=== PATIENT | female | born 1960 | race Caucasian/White ===

== ENCOUNTER 2022-04-13 19:58 | Observation (INO) ==
[2022-04-13] MEDS ORDERED: IOPAMIDOL 100 ML BOTTLE IV ONE (19:59)
[2022-04-13] MEDS ORDERED: 0.9 % SODIUM CHLORIDE 1,000 ML IV ONE (20:29)
[2022-04-13 20:38] LABS: POC Calcium, Ionized 1.19 (1.16-1.32); POC Creatinine 0.8 (0.6-1.2); POC Potassium 3.4 (3.3-5.1)
--- NOTE | 2022-04-13 20:57 | Emergency Department Note ---
Abdominal Pain HPI General Chief Complaint: Abdominal Pain Stated Complaint: right lower abd. pain Time Seen by Provider: 04/13/22 20:29 Source: patient Mode of arrival: ambulatory Limitations: no limitations History of Present Illness HPI Narrative: Narrative: Patient presents ED with complaints of abdominal pain x2 days has been worsening. Pain is rated 3/10 right now but whenever she tries to walk it goes up to 7/10. She reports the pains on her right side in the middle of her belly and radiates down to her right lower quadrant. Patient reports that she has had a UTI that she has been treated for twice in the past month. She finished up her last round of antibiotics about 3 days ago. She still reports a funny feeling when she pees. She denies fever, chills, nausea, vomiting, diarrhea, constipation, urinary frequency, foul-smelling urine, vaginal discharge, hematuria, abdominal trauma. She reports vesg-[id number] medication does not help with the discomfort. Patient denies any other alleviating or aggravating factors. Related Data Home Medications Medication Instructions Recorded Confirmed montelukast 10 mg tablet 10 mg PO QDAY 02/11/22 04/01/22 Allergies Allergy/AdvReac Type Severity Reaction Status Date / Time Sulfa (Sulfonamide Allergy Intermediate Swelling Verified 04/13/22 20:04 Antibiotics) Review of Systems ROS ROS Narrative: Narrative: All systems ED: reviewed and negative except as stated. PFS Narrative Patient History Narrative: Narrative: Medical/Surgical/Family History All Active Problems (Updated 04/13/22 @ 22:32 by Ben Fitzgerald DO) Acute appendicitis (Acute) UTI (urinary tract infection) (Acute) Social History Smoking Status: Never smoker Exam Narrative Narrative: Narrative: General Limitations: no limitations General appearance: Present alert Respiratory Respiratory: Present normal lung sounds bilaterally; Absent respiratory distress Cardiovascular Cardiovascular: Present regular rate and normal rhythm Adbominal Abdominal: Present soft, tenderness, guarding and normal bowel sounds Expanded Abdominal Abdominal Tenderness: Present RUQ and RLQ Back Back: Absent CVA tenderness (R) or CVA tenderness (L) Neurological Neurological: Present oriented X3 and normal gait Psychiatric Psychiatric: Present normal affect and normal mood Skin Skin: Present intact Course Course Course Narrative: Patient was evaluated for abdominal pain. Labs were obtained show leukocytosis. CT abdomen pelvis obtained with image reviewed myself which shows acute teto endicitis. Case was discussed with on-call surgeon, Dr. Sadler, who recommend the patient be admitted to the hospital and IV antibiotics administered. He requested patient be made n.p.o. and preparations for surgery in the morning. Plan was discussed with patient she expressed verbal understanding and agreement. Consultations Consultation #1: Case discussed with on-call surgeon, Dr. Sadler, recommends the patient be admit justo to the hospital and given oral antibiotics and made n.p.o. Time: 22:20 Vital Signs Vital signs: Vital Signs Pulse Rate 66 04/13/22 20:12 Blood Pressure 152/92 04/13/22 20:12 Pulse Oximetry (%) 99 04/13/22 20:12 Pulse Rate 72 04/13/22 22:21 Blood Pressure 142/92 04/13/22 22:21 Pulse Oximetry (%) 82 L 04/13/22 22:21 MDM MDM Narrative Medical decision making narrative: Narrative: Differential Diagnosis Differential Diagnosis: Kidney stone, pyelonephritis, appendicitis Medical Records Medical records reviewed: Yes I reviewed the patient's medical records. Lab Data Lab results reviewed: Yes I reviewed the patient's lab results. Result diagrams: 04/13/22 20:29 Labs: Lab Results 04/13/22 04/13/22 04/13/22 Range/Units 20:29 20:29 20:35 WBC 12.8 H (4.5-11.0) K/mcL RBC 4.73 (3.59-5.38) M/mcL Hgb 13.4 (11.2-15.7) g/dL Hct 41.2 (34.1-44.9) % POC Hct 42.0 (36-48) MCV 87.1 (80.0-100.0) fL MCH 28.3 (26.0-34.0) pg MCHC 32.5 (31.0-36.0) g/dL RDW 14.3 (11.5-14.5) % Plt Count 261 (140-440) K/mcL MPV 10.0 (7.4-10.4) fL Immature Gran % (Auto) 0.4 (0.0-0.5) % Neut % (Auto) 74.1 (38.0-78.0) % Lymph % (Auto) 17.1 (15.5-49.0) % Kinney % (Auto) 7.0 (1.0-12.0) % Eos % (Auto) 1.1 (0.0-7.0) % Baso % (Auto) 0.3 (0.0-2.0) % Lymph # (Auto) 2.19 (1.50-4.80) K/mcL Kinney # (Auto) 0.90 (0.10-0.90) K/mcL Eos # (Auto) 0.14 (0.00-0.70) K/mcL Baso # (Auto) 0.04 (0.00-0.30) K/mcL Immature Gran # 0.05 (0.00-0.05) K/mcl Absolute Neutrophils 9.51 H (1.80-8.00) K/mcL POC Sodium 140 (133-145) POC Potassium 3.4 (3.3-5.1) POC Chloride 106 (96-108) POC Total CO2 23.0 (22-30) POC BUN 16 (6-20) POC Creatinine 0.8 (0.6-1.2) POC Glucose 137 H (70-105) POC WB Ioniz Calcium 1.19 (1.16-1.32) Total Bilirubin 0.3 (0.1-1.0) mg/dL Direct Bilirubin < 0.2 (0-0.3) mg/dL AST 14 (<32) U/L ALT 17 (<40) U/L Alkaline Phosphatase 94 (39-117) U/L Total Protein 7.0 (5.9-8.4) gm/dL Albumin 4.3 (3.2-5.2) gm/dL Globulin 2.7 (2.2-3.7) gm/dL Radiology Data Radiology results reviewed: Yes I reviewed the patient's radiology results. Radiology results narrative: CT abdomen pelvis obtained with image reviewed myself, acute appendicitis identified Core Measures AMI Core Measures Followed: Yes Discharge Plan Patient/Caregiver Discharge Instructions Pt seen by CHURN OPERATOR MARGARINE/PA only: No Clinical Impression: Acute appendicitis Patient Disposition: Xfer As Outpt/Obs ([facility]) Condition: Good Follow up with: TIMOTEO MONTIEL [Primary Care Provider] - Prescriptions: No Action montelukast 10 mg tablet 10 mg PO QDAY
[2022-04-13 21:19] LABS: Basophils # (Auto) 0.04 K/mcL (0.00-0.30); Basophils % (Auto) 0.3 % (0.0-2.0); Eosinophils # (Auto) 0.14 K/mcL (0.00-0.70); Eosinophils % (Auto) 1.1 % (0.0-7.0); Hematocrit 41.2 % (34.1-44.9); Hemoglobin 13.4 g/dL (11.2-15.7); Lymphocytes # (Auto) 2.19 K/mcL (1.50-4.80); Lymphocytes % (Auto) 17.1 % (15.5-49.0); Mean Cell Volume 87.1 fL (80.0-100.0); Mean Corpuscular HGB Conc 32.5 g/dL (31.0-36.0); Neutrophils % (Auto) 74.1 % (38.0-78.0); Platelet Count 261 K/mcL (140-440); RBC 4.73 M/mcL (3.59-5.38); Red Cell Distribution Width 14.3 % (11.5-14.5); WBC 12.8 K/mcL (4.5-11.0)
[2022-04-13 21:51] LABS: ALT/SGPT 17 U/L (<40); AST/SGOT 14 U/L (<32); Albumin 4.3 gm/dL (3.2-5.2); Alkaline Phosphatase 94 U/L (39-117); Bilirubin,Direct < 0.2 mg/dL (0-0.3); Bilirubin,Total 0.3 mg/dL (0.1-1.0); Globulin 2.7 gm/dL (2.2-3.7)
[2022-04-13] MEDS ORDERED: metroNIDAZOLE 500 MG/100 ML BAG IV ONE (22:27)
[2022-04-13] MEDS ORDERED: ceFAZolin 1 GM VIAL IV ONE (22:27)
[2022-04-13] MEDS ORDERED: ONDANSETRON 4 MG/2 ML VIAL IV ONE (22:28)
[2022-04-13] MEDS ORDERED: NALOXONE HCL 0.4 MG/ML VIAL IV PRN (22:28)
[2022-04-13] MEDS: 0.9 % SODIUM CHLORIDE 1,000 ML IV SCH (23:10)
[2022-04-14] MEDS: 0.9 % SODIUM CHLORIDE 1,000 ML IV SCH ×2 (00:42→11:34)
--- NOTE | 2022-04-14 06:02 | Cat Scan Report ---
INDICATION: abd pain COMPARISON: None. TECHNIQUE: Axial images were obtained through the abdomen and pelvis. Sagittally and coronally reformatted images. 80 mL Isovue 370 injected intravenously. Oral contrast material was not administered FINDINGS: Examination was initially interpreted by [facility] Lung bases:Negative. No pulmonary parenchymal nodule. No pleural fluid or pericardial fluid Liver:There is a 17 mm lesion in the right lobe of the liver. Enhancement characteristics are benign and consistent with hemangioma. Gallbladder, bilary:Small lucencies within the gallbladder consistent with nitrogen containing gallstones. No gallbladder wall thickening or pericholecystic fluid. No dilated bile ducts. Spleen:No splenomegaly. Normal enhancement of splenic and portal veins. Pancreas:No pancreatic mass. No peripancreatic abnormality Adrenal glands:Negative Kidneys,ureters,bladder:No solid renal mass. No hydronephrosis. No obstructing or nonobstructing calculi. No hydroureter. No ureteral calculus. Bladder is mildly distended. No bladder calculi. No detectable mass Gastrointestinal:No detectable colonic mass. There is no diverticulitis. Negative small bowel. No mechanical small bowel obstruction. No bowel wall thickening. No focal abnormality. Negative stomach and duodenum. No focal abnormality. Appendix: The appendix is more consistent with appendicitis. Appendix is distended and measures approximately 16 mm maximally. There is periappendiceal fat stranding. There is an appendicolith at the base of the appendix. This measures 11 mm. There is no focal abscess. There is no pneumoperitoneum. No significant free fluid. Appearance is consistent with appendicitis but no definite evidence for ruptured appendix. Vascular:Negative abdominal aorta. Superior mesenteric artery and celiac trunk are normal. Normal opacification of the inferior mesenteric artery Lymphatic:No retroperitoneal or mesenteric adenopathy Mesentery, peritoneum: No free intraperitoneal fluid. No mesenteric or retroperitoneal mass. No intra-abdominal abscess. Reproductive:Findings consistent with hysterectomy. No adnexal mass Musculoskeletal:No lumbar compression fractures. Sacrum and pelvis are negative. No hip fracture. There is small umbilical hernia containing only fat IMPRESSION: 1. Acute appendicitis. Appendix is distended to 16 mm with periappendiceal fat stranding. There is an 11 mm appendicolith at the appendiceal base 2. No definite CT evidence for rupture 3. Mild bladder distention 4. Findings consistent with benign hepatic hemangioma 5. Cholelithiasis The exam was performed using radiation dose optimization techniques including, but not limited to, automated exposure control, adjustment of the mA and/or kV according to patient size and use of iterative reconstruction technique. Interpreted and Authenticated by: Maninder Morris 04/14/22
[2022-04-14] MEDS ORDERED: ONDANSETRON 4 MG/2 ML VIAL IV PRN ×2 (08:12→14:27)
--- NOTE | 2022-04-14 09:10 | XRay Report ---
INDICATION: clear for surgery TECHNIQUE: AP portable upright chest x-ray COMPARISON: Previous PA and lateral chest x-ray dated 04/15/2011 FINDINGS: Lungs:Lungs are negative. No focal pulmonary parenchymal infiltrate or mass Heart, vascular:No significant cardiomegaly. Pulmonary vascularity is normal. No pulmonary edema or pulmonary congestion Mediastinum, mateo:No mediastinal widening. No hilar mass Pleura:No pleural fluid. No pleural-based mass or calcification Skeletal:Negative. IMPRESSION: Negative AP chest x-ray. No interval change Interpreted and Authenticated by: Maninder Morris 04/14/22
[2022-04-14] MEDS: PIPERACILLIN SODIUM/TAZOBACTAM 3.375 GM in DEXTROSE 5% IN WATER 50 ML IV SCH ×3 (09:50→16:00)
[2022-04-14] MEDS: ACETAMINOPHEN 1,000 MG/100 ML BAG IV PRN ×2 (11:14→22:22)
--- NOTE | 2022-04-14 12:01 | General Surg History&Physical ---
HPI History of Present Illness Patient information: Note initiated : 04/14/22 at 11:56 am Service Date, if different from initiated Date: [] Patient: Darren Stone a 61 y/o F admitted on 04/13/22 for right lower abd. pain. Chief Complaint: [] Chief complaint: Acute appendicitis History of present illness: Ms. Stone is a 61 year old F with 2-day history of diffuse abdominal pain which has settled in the right lower quadrant. She has had nausea but no vomiting. She has not been febrile. There has been no change in bowel habits. Patient evaluated in the emergency room And Has acute appendicitis. She has a 16mm appendix with Appendiceal tissue edema and an appendicolith. Her white blood count is 12, 800. Patient is counseled for appendectomy. Review of Systems All systems: reviewed and no additional remarkable complaints except as stated PFSH PFSH All Active Problems (Updated 04/13/22 @ 22:32 by Ben Fitzgerald DO) Acute appendicitis (Acute) UTI (urinary tract infection) (Acute) Social History smoking status: Never smoker MEDS/ALLERGIES Home Medications and Allergies Home Medications Medication Instructions Recorded Confirmed Type montelukast 10 mg tablet 10 mg PO QHS 02/11/22 04/13/22 History melatonin 1 mg tablet 5 mg PO QHS 04/13/22 04/13/22 History Allergies Allergy/AdvReac Type Severity Reaction Status Date / Time Sulfa (Sulfonamide Allergy Intermediate Swelling Verified 04/13/22 20:04 Antibiotics) Physical Examination Vital Signs Vital signs: Temp Pulse Resp BP Pulse Ox O2 Del Method 97.1 F 68 12 112/66 97 04/14/22 08:00 04/14/22 08:00 04/14/22 08:00 04/14/22 08:00 04/14/22 08:00 04/14/22 08:00 General physical appearance General physical exam: well developed, well nourished and moderate pain Eyes Eye exam: PERRL and normal ocular movement ENT ENT exam: normal mucosa and no congestion Head Head exam IM: Present atraumatic, normal inspection and normocephalic Neck Neck exam: no masses, no bruits, trachea midline and no lymphadenopathy Cardiovascular Cardiovascular exam IM: Present normal rate and rhythm, RRR, +S1 and +S2; Absent JVD Respiratory Respiratory exam: normal expansion, normal respiratory effort and clear to auscultation Abdomen Abdomen: Present soft, tender (Right lower quadrant and hypogastric region), guarding and rebound Integumentary Integumentary: Present no rash, no growths and no abnormal pigmentation Neurologic Neurologic: Present normal coordination and normal sensation Musculoskeletal Musculoskeletal: Present normal gait and normal posture Psychiatric Psychiatric: Present oriented to time, oriented to person, oriented to place, speech is normal and memory intact Results Labs Result diagrams: 04/13/22 20:29 Labs: Abnormal lab results 04/13/22 04/13/22 Range/Units 20:29 20:35 WBC 12.8 H (4.5-11.0) K/mcL Absolute Neutrophils 9.51 H (1.80-8.00) K/mcL POC Glucose 137 H (70-105) Diabetes panel 04/13/22 Range/Units 20:29 AST 14 (<32) U/L ALT 17 (<40) U/L Alkaline Phosphatase 94 (39-117) U/L Total Protein 7.0 (5.9-8.4) gm/dL Albumin 4.3 (3.2-5.2) gm/dL Calcium panel 04/13/22 Range/Units 20:29 Albumin 4.3 (3.2-5.2) gm/dL Adrenal panel 04/13/22 Range/Units 20:29 Total Bilirubin 0.3 (0.1-1.0) mg/dL AST 14 (<32) U/L ALT 17 (<40) U/L Alkaline Phosphatase 94 (39-117) U/L Total Protein 7.0 (5.9-8.4) gm/dL Albumin 4.3 (3.2-5.2) gm/dL All other labs normal. A/P Assessment and plan (1) Acute appendicitis: Status: Acute Qualifiers: Acute appendicitis type: unspecified acute appendicitis type Qualified Code(s): K35.80 - Unspecified acute appendicitis Plan Patient is counseled for laparoscopic appendectomy. It will be performed later today Time Spent With Patient Time: Total time spent is greater than 50% in coordination of care (as documented) at patient's floor/unit and/or counseling patient:
[2022-04-14] MEDS ORDERED: GLYCOPYRROLATE 0.2 MG/ML VIAL IV ONE (13:00)
[2022-04-14] MEDS ORDERED: MAGNESIUM SULFATE 2 GM/50 ML BAG IV ONE (13:00)
[2022-04-14] MEDS ORDERED: SUGAMMADEX SODIUM 200 MG/2 ML VIAL IV ONE (13:00)
[2022-04-14] MEDS ORDERED: DEXAMETHASONE 10 MG/ML VIAL ONE (13:00)
[2022-04-14] MEDS ORDERED: PROPOFOL 200 MG/20 ML VIAL IV ONE (13:00)
[2022-04-14] MEDS ORDERED: ePHEDrine 50 MG/5 ML SYRINGE (ANEST) IV ONE (13:00)
[2022-04-14] MEDS ORDERED: LIDOCAINE HCL/PF 100 MG/5 ML SYRINGE IV ONE (13:00)
[2022-04-14] MEDS ORDERED: ROCURONIUM 10 MG/ML ML IV ONE (13:00)
[2022-04-14] MEDS ORDERED: fentaNYL 100 MCG/2 ML VIAL IV ONE (13:00)
[2022-04-14] MEDS ORDERED: ONDANSETRON 4 MG/2 ML VIAL ONE (13:00)
[2022-04-14] MEDS ORDERED: KETAMINE 50 MG/ML Syringe (ANEST) IV ONE (13:00)
--- NOTE | 2022-04-14 13:32 | EKG ---
[facility] Test Date: 2022-04-14 Pat Name: Darren Stone Department: [facility] Room: 107 Gender: Female Sales Department Clerk: : 1960 Requested By: Allyson Sadler Order Number: [id number] Reading MD: Napoleon Salcedo Measurements Intervals [place] Rate: 63 P: 31 NV: 159 QRS: -30 QRSD: 108 T: 38 QT: 420 QTc: 430 Interpretive Statements Sinus rhythm Electronically Signed On 04-14-2022 13:32:54 PDT by Napoleon Salcedo /store/M0/[id number].pdf
[2022-04-14] MEDS ORDERED: LABETALOL 5 MG/ML ML IV PRN (14:27)
[2022-04-14] MEDS ORDERED: IPRATROPIUM/ALBUTEROL 3 ML AMPUL.NEB NEB PRN (14:27)
[2022-04-14] MEDS ORDERED: PROMETHAZINE 25 MG/ML VIAL IM PRN (14:27)
[2022-04-14] MEDS ORDERED: MEPERIDINE 25 MG/ML VIAL IV PRN (14:27)
[2022-04-14] MEDS ORDERED: HYDROmorphone 0.5 MG/0.5 ML SYRINGE IV PRN (14:27)
[2022-04-14] MEDS ORDERED: LACTATED RINGERS 250 ML IV PRN (14:27)
[2022-04-14] MEDS ORDERED: ACETAMINOPHEN 1,000 MG/100 ML BAG IV ONE (14:27)
[2022-04-14] MEDS ORDERED: METHOCARBAMOL 1,000 MG/10 ML VIAL IV PRN (14:27)
[2022-04-14] MEDS ORDERED: PROMETHAZINE 25 MG/ML VIAL IV PRN ×2 (14:27→19:20)
[2022-04-14] MEDS ORDERED: KETOROLAC 30 MG/ML VIAL IV PRN (14:27)
[2022-04-14] MEDS ORDERED: METOCLOPRAMIDE 10 MG/2 ML VIAL IV PRN (14:27)
[2022-04-14] MEDS ORDERED: NALOXONE HCL 0.4 MG/ML VIAL IV PRN (14:27)
[2022-04-14] MEDS ORDERED: morphine 2 MG/ML VIAL IV PRN (14:27)
[2022-04-14] MEDS ORDERED: MEPERIDINE 50 MG/ML VIAL IM PRN (14:27)
[2022-04-14] MEDS ORDERED: LACTATED RINGERS 1,000 ML IV SCH (14:30)
--- NOTE | 2022-04-14 14:38 | Brief Operative Note ---
Brief Operative Note Date of procedure: 04/14/22 Pre-op diagnosis: acute appendicitis Post-op diagnosis: other (acute appendicitis) Procedure: laparoscopic appendectomy Grafts/Implants: No (kenneth drain x1) Anesthesia: GETA Findings: acute and chronic severe inflammation of entire appendix with adherence to wall of cecum Complications: none Surgeon: Allyson Sadler Estimated blood loss (cc): 15 Specimens Removed/Pathology: other (appendix) Condition: stable Disposition: PACU
[2022-04-14] MEDS ORDERED: HYDROmorphone 1 MG/ML SYRINGE IV PRN (14:42)
[2022-04-14] MEDS: fentaNYL 100 MCG/2 ML VIAL IV PRN ×4 (15:01→15:07)
[2022-04-15] MEDS: PIPERACILLIN SODIUM/TAZOBACTAM 3.375 GM in DEXTROSE 5% IN WATER 50 ML IV SCH ×3 (00:14→12:00)
[2022-04-15] MEDS: morphine 2 MG/ML VIAL IV PRN ×3 (00:29→05:17)
[2022-04-15] MEDS: 0.9 % SODIUM CHLORIDE 1,000 ML IV SCH ×2 (02:41→03:25)
[2022-04-15] MEDS: 0.9 % SODIUM CHLORIDE 10 ML SYRINGE IV SCH ×2 (05:17→13:33)
[2022-04-15] MEDS ORDERED: MONTELUKAST 10 MG TABLET PO ONE (05:50)
[2022-04-15 06:31] LABS: Basophils # (Auto) 0.01 K/mcL (0.00-0.30); Basophils % (Auto) 0.1 % (0.0-2.0); Eosinophils # (Auto) 0 K/mcL (0.00-0.70); Eosinophils % (Auto) 0 % (0.0-7.0); Hemoglobin 11.6 g/dL (11.2-15.7); Lymphocytes # (Auto) 0.95 K/mcL (1.50-4.80); Lymphocytes % (Auto) 8.3 % (15.5-49.0); Mean Cell Volume 87.6 fL (80.0-100.0); Mean Corpuscular HGB Conc 32.2 g/dL (31.0-36.0); Mean Platelet Volume 9.9 fL (7.4-10.4); Monocytes # (Auto) 0.76 K/mcL (0.10-0.90); Monocytes % (Auto) 6.7 % (1.0-12.0); Neutrophils % (Auto) 84.5 % (38.0-78.0); Platelet Count 237 K/mcL (140-440); RBC 4.11 M/mcL (3.59-5.38); Red Cell Distribution Width 14.4 % (11.5-14.5); WBC 11.4 K/mcL (4.5-11.0)
[2022-04-15 06:56] LABS: ALT/SGPT 11 U/L (<40); AST/SGOT 12 U/L (<32); Albumin 3.4 gm/dL (3.2-5.2); Albumin/Globulin Ratio 1.3 (1.0-2.3); Alkaline Phosphatase 75 U/L (39-117); Bilirubin,Direct < 0.2 mg/dL (0-0.3); Bilirubin,Total 0.4 mg/dL (0.1-1.0); Blood Urea Nitrogen 10 mg/dL (8-23); Calcium 8.3 mg/dL (8.6-10.4); Carbon Dioxide 24 mmol/L (22-30); Chloride 108 mmol/L (96-108); Globulin 2.7 gm/dL (2.2-3.7); Glomerular Filtration Rate 92; Glucose 137 mg/dL (70-105); Lactate Dehydrogenase 169 U/L (135-225); Phosphorous 2.6 mg/dL (2.5-4.5); Triglycerides 75 mg/dL (<150); Uric Acid 3.8 mg/dL (2.5-8.0)
[2022-04-15] MEDS: ACETAMINOPHEN 1,000 MG/100 ML BAG IV PRN (08:12)
--- NOTE | 2022-04-15 14:26 | Discharge Summary ---
Discharge Provider Provider IMPORTANT FOLLOW-UP INFORMATION FOR PCP: Patient information: Note initiated : 04/15/22 at 2:21 pm Service Date, if different from initiated Date: [] Patient: Darren Stone 61 y/o F admitted on 04/13/22 for right lower abd. pain. Chief Complaint: [] Date of admission: 04/13/22 23:24 Discharge date: 04/15/22 Primary care physician: TIMOTEO MONTIEL Admitting clinician: Allyson Sadler Attending physician on admission: Allyson Sadler Consults: 04/14/22 07:08 Consult to Physician [CONS] Routine Comment: Consulting Provider: Allyson Sadler Reason For Exam: Physician to Consult Attending physician on discharge: Allyson Sadler Discharging clinician: Allyson Sadler COURSE Hospital Course Hospital course: 61-year-old female admitted with acute right lower quadrant pain with nausea. CT confirms acute appendicitis. She was admitted and started on antibiotics. She had laparoscopic appendectomy yesterday. She has improved nicely in the postoperative period and has essentially no complaints. She has minimal pain. Patient has tolerated diet and is stable for discharge home. Discharge diagnosis: Acute appendicitis Reason for admission: Acute appendicitis Procedures: Laparoscopic appendectomy Pertinent studies/significant findings: None Complications: None Time Spent with Patient Time attestation: Total time spent providing and/or coordinating discharge services: Time spent: Less than 30 minutes Physical Examination Vital Signs Vital signs: Temp Pulse Resp BP Pulse Ox O2 Del Method O2 Flow Rate 97.2 F 56 L 16 100/57 97 2 04/15/22 12:00 04/15/22 12:00 04/15/22 12:00 04/15/22 12:00 04/15/22 12:00 04/15/22 12:00 04/14/22 19:20 General physical appearance General physical exam: well developed, well nourished and no distress Eyes Eye exam: PERRL and normal ocular movement ENT ENT exam: normal nares and normal mucosa Head Head exam IM: Present atraumatic, normal inspection and normocephalic Neck Neck exam: no masses, no bruits, trachea midline, no lymphadenopathy and no venous distension Cardiovascular Cardiovascular exam IM: Present normal rate and rhythm, RRR, +S1 and +S2; Absent JVD Respiratory Respiratory exam: normal expansion, normal respiratory effort and clear to auscultation Abdomen Abdomen: Present soft, tender (mild tenderness around port sites) and surgical scars (Port sites are unremarkable; serosanguineous drainage in CHITO) Integumentary Integumentary: Present no rash, no growths and no abnormal pigmentation Musculoskeletal Musculoskeletal: Present normal gait, normal posture and other Psychiatric Psychiatric: Present oriented to time, oriented to person, oriented to place, speech is normal and memory intact Discharge Plan Patient/Caregiver Discharge Instructions Activity: increase activity as tolerated Diet: Regular Diet Instructions: Gerald-Stack Drain Care (DC), Laparoscopic Appendectomy (DC) Prescriptions: New hydrocodone-acetaminophen 10-325 mg tablet 1 tab PO Q4H PRN (Reason: Pain) Qty: 30 0RF No Action montelukast 10 mg tablet 10 mg PO QHS melatonin 1 mg Tablet 5 mg PO QHS Follow Up Plan Follow up with: TIMOTEO MONTIEL [Primary Care Provider] - Patient Disposition: Home, Self-Care Prognosis: Good Rehab Potential: Good I certify that the patient requires SNF services: No Overall status at discharge: patient is progressing back to baseline Discharge Orders: Discharge Order (Routine); Ordered 04/15/22 Ordered By: Allyson Sadler Pending Pending Pending: Resuscitation Status Resuscitate (Full Code) Diet Regular Diet Start WedApr 15 0800 Hydromorphone HCl (Hydromorphone 1 Mg/Ml Syringe) 1 mg IV Q2HP PRN; Protocol PRN Reason: Per Pain Protocol Last Admin: 04/14/22 16:58 Dose: 1 mg Documented By: [email or web address] Sodium Chloride (Sodium Chloride 0.9%) 1,000 mls @ 100 mls/hr IV .Q10H [facility] Last Admin: 04/15/22 03:25 Dose: Not Given Documented By: Admin: 04/15/22 02:41 Dose: 100 mls/hr Documented By: Infusion: 04/15/22 00:53 Dose: 100 mls/hr Documented By: Infusion: 04/14/22 15:48 Dose: 100 mls/hr Documented By: [email or web address] Infusion: 04/14/22 12:30 Dose: 0 mls/hr Documented By: Admin: 04/14/22 11:34 Dose: 100 mls/hr Documented By: Infusion: 04/14/22 10:42 Dose: 100 mls/hr Documented By: Admin: 04/14/22 00:42 Dose: 100 mls/hr Documented By: Admin: 04/13/22 23:10 Dose: Not Given Documented By: [email or web address] Piperacillin Sod/Tazobactam (Sod 3.375 gm/ Dextrose) 50 mls @ 100 mls/hr IV Q6H CYRUS; Protocol Last Infusion: 04/15/22 12:30 Dose: 0 mls/hr Documented By: Admin: 04/15/22 12:00 Dose: 100 mls/hr Documented By: Infusion: 04/15/22 05:57 Dose: 0 mls/hr Documented By: Admin: 04/15/22 05:21 Dose: 100 mls/hr Documented By: Infusion: 04/15/22 00:52 Dose: 0 mls/hr Documented By: UXZina Admin: 04/15/22 00:14 Dose: 100 mls/hr Documented By: UXZina Infusion: 04/14/22 16:36 Dose: 0 mls/hr Documented By: Admin: 04/14/22 16:00 Dose: 100 mls/hr Documented By: Admin: 04/14/22 15:55 Dose: Not Given Documented By: Infusion: 04/14/22 10:20 Dose: 0 mls/hr Documented By: Admin: 04/14/22 09:50 Dose: 100 mls/hr Documented By: [email or web address] Acetaminophen (Ofirmev) 1,000 mg in 100 mls @ 200 mls/hr IV Q6HP PRN; Protocol PRN Reason: Pain Last Infusion: 04/15/22 08:42 Dose: 0 mls/hr Documented By: [email or web address] Admin: 04/15/22 08:12 Dose: 200 mls/hr Documented By: [email or web address] [email or web address] Infusion: 04/14/22 23:00 Dose: 0 mls/hr Documented By: Admin: 04/14/22 22:22 Dose: 200 mls/hr Documented By: Infusion: 04/14/22 11:54 Dose: 0 mls/hr Documented By: Admin: 04/14/22 11:14 Dose: 200 mls/hr Documented By: [email or web address] Morphine Sulfate (Morphine 2 Mg/Ml Vial) 2 mg IV Q2HP PRN; Protocol PRN Reason: Per Pain Protocol Last Admin: 04/15/22 05:17 Dose: 2 mg Documented By: Admin: 04/15/22 03:02 Dose: 2 mg Documented By: [email or web address] Admin: 04/15/22 00:29 Dose: 2 mg Documented By: UXF Ondansetron HCl (Ondansetron 4 Mg/2 Ml Vial) 4 mg IV Q4HP PRN; Protocol PRN Reason: Nausea/Vomiting Last Admin: 04/14/22 16:58 Dose: 4 mg Documented By: [email or web address] Sodium Chloride (0.9 % Sodium Chloride 10 Ml Syringe) 10 ml IV Q8 CYRUS Last Admin: 04/15/22 13:33 Dose: Not Given Documented By: [email or web address] Admin: 04/15/22 05:17 Dose: Not Given Documented By: VALENTINE Shift Summary 04/15/22 01:37 Shift Summary by Cinthia Cardoso Primary Diagnosis: Acute and chronic severe inflammation of the entire appendix with adherence to wall of cecum Registration Status: Inpatient Day of Hospitalization (admit date=day zero): 04/13/22 Date of Surgery (if applicable): 04/14/22 at ~1300, back to the room at ~1540 Pertinent Medical Dx/Issue(s): Hysterectomy with tumor removal, UTI Interventions (wounds, diuresis, etc): 0.9% NaCl at 100 ml/hr, Zosyn q 6 hrs, pain management (Ofirmev times 1, Morphine 2 mg times 1). CHITO drain to lower abdomen with serosanguineous fluid ( total of 50 ml out so far). Has 2 lap sites visible with 9 debbie and Tegaderm. Was straight cathed in the OR and bladder scanned for 0 in PACU. Voided 2 times so far (30 ml et 350 ml). Full liquid diet ordered but advised to take in ice chips only d/t nausea et this has helped her much. Did get an order for a additional antiemetic (Phenergan 12.5 mg q 4 hrs prn) but she has not needed it. Vital Signs with Trends: BP WNL. Had to be placed on 2L O2 via NC after 1mg Dilaudid yesterday afternoon. SpO2 dropped to 77% at the lowest. Has not required O2 through the night. SpO2 has been in the mid 90s et she uses the I.S. up to 1500. Tolerated Morphine well. O2, liter flow/saturations: RA Vent/Bipap/Cpap: Meds (abo, pain, BP, etc): NS@100ml/hr. PACU gave 100 mcg fentanyl, 750mg Robaxin, and 30mg Toradol. Lab/Rad (abnormal results): WBC 12.8 et Potassium 3.4 on 04/14/22 Neuro/Mental Status: A&OX4, drowsy after surgery, more awake as night went by. Cardiac Rhythm, Alarm Settings: Urinary Elimination (Coy out in 24H?; u.o. > 30mL/hr?): Up to bathroom with SBA et once on the BSC. Date of last BM: 04/13/22 Lines/Tubes: Saline lock left forearm et iv site LH Activity: Up OOB onto BSC et/or bathroom. Recommendations/questions for MD: Expected date of discharge: 04/15/22 Discharge Plan (needs, disposition, etc): Home with very supportive family. Yesterday was her husbands 65th birthday et they have been for 44 years. Initialized on 04/14/22 17:40 - END OF NOTE Initialized on 04/15/22 01:37 - END OF NOTE
[2022-04-15] MEDS ORDERED: MONTELUKAST 10 MG TABLET PO SCH (21:00)
--- NOTE | 2022-04-22 14:47 | Operative Note ---
DATE OF OPERATION: 04/14/2022 DATE OF PROCEDURE: 04/14/2022 PREOPERATIVE DIAGNOSIS: Acute appendicitis. POSTOPERATIVE DIAGNOSIS: Acute appendicitis. PROCEDURE: Laparoscopic appendectomy. SURGEON: Allyson Sadler M.D. 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 DESCRIPTION OF PROCEDURE: Under general anesthesia, the patient's abdomen was prepped and draped in a sterile field. Timeout procedure was carried out as per protocol. Supraumbilical midline incision was made. Veress needle was inserted. The abdomen was insufflated with 2 liters of CO2. A 10 mm port was placed. Laparoscope was placed. Under videoscopic guidance, a 5 mm port was placed in the suprapubic midline and a 12 mm port in the left lower quadrant. The patient was placed in deep Trendelenburg position and rotated to the left. There was inflammation on the lateral border of the cecum. This was bluntly dissected and a somewhat contracted severely inflamed appendix was noted. It was adherent to the wall of the cecum. Using all blunt dissection, the appendix was from the wall of the cecum to prevent injury. Once this was done, it was noted that the appendix had a very short base. The base was dissected using the [place] dissector. Once it was dissected, it was transected at the junction with the cecum using Endo NICK stapler. The mesoappendix was then serially dissected and was transected using two more fires of the Endo NICK stapler. There were some small vessels that were clipped with Hemoclips. The appendix was placed in an Endopouch and retrieved. Irrigation was carried out. A #10 Chele drain was placed in the bed of the appendix laterally. It was brought out through the suprapubic port site. The other ports were removed. The fascia at the umbilicus and in the left lower quadrant were closed with interrupted 0 Vicryl. Skin was closed with debbie. The patient tolerated the procedure well. Tegaderm dressings were placed. She was awakened, transferred to a bed, and taken to the postanesthetic care unit in stable, satisfactory condition. LCS:anjum Job ID: [id number] Doc ID: [id number] Allyson Sadler M.D.
== END 2022-04-15 15:35 | disposition home or self-care (01) ==
LOC: ED 19:58 → MEDSUR 19:58
PROVIDERS: ADMIT Family Medicine Adult Medicine; ATTEND Family Medicine Adult Medicine